=== PATIENT | female | born 2000 | race African-American/Black ===

== ENCOUNTER 2025-06-11 17:01 | Emergency (ER) | payer BC, MEDICAID ==
[~2025-06-11] VITALS: Ht 162.6 cm; Wt 68.0 kg
[2025-06-11 17:27] VITALS: O2SAT 79
[2025-06-11 19:36] LABS: BASOPHILS % 0.4 % (0.0-2.0); EOSINOPHILS % 0.7 % (0.0-5.0); HEMATOCRIT. 34.3 % (36.0-48.0); HEMOGLOBIN. 10.9 g/dL (12.0-16.0); LYMPHOCYTES % 12.5 % (20.0-50.0); MEAN PLATELET VOLUME 8.8 fl (7.4-10.4); MONOCYTES % 6.6 % (2.0-8.0); NEUTROPHILS % 79.8 % (40.0-76.0); PLATELET 188 x1000/uL (130-400); RED BLOOD CELL COUNT 4.85 mill/uL (4.2-5.4); RED CELL DISTRIBUTION WIDTH 20.2 % (11.6-14.6)
[2025-06-11 19:49] LABS: CREATININE 0.7 mg/dL (0.6-1.0)
[2025-06-11 19:50] LABS: ETHANOL BLOOD < 10 mg/dL (<10); UREA NITROGEN BLOOD 6 mg/dL (9-23)
[2025-06-11 19:51] LABS: ASPARTATE AMINOTRANSFERASE 110 IU/L (<34)
[2025-06-11 19:52] LABS: BILIRUBIN DIRECT 0.2 mg/dL (<=3.0); BILIRUBIN TOTAL 0.7 mg/dL (0.1-1.0); PROTEIN TOTAL 7.9 g/dL (6.0-8.3)
[2025-06-11 19:59] LABS: HCG SCREEN NEGATIVE
[2025-06-11] MEDS ORDERED: NALT50TA5 MT (20:21)
[2025-06-11] MEDS ORDERED: ONDA4TAB50 MT (20:21)
[2025-06-11] MEDS ORDERED: CHLO25CA11 MT (20:21)
[2025-06-11] MEDS: SODIUM CHLORIDE 0.9% 1,000 ML IV ONE (21:05)
[2025-06-11] MEDS: ONDANSETRON HCL 4MG/2ML INJ IV SCH (21:06)
[2025-06-11] MEDS: LORAZEPAM 2MG/ML UD SYRINGE IV SCH (21:06)
[2025-06-11 21:26] LABS: TROPONIN I HIGH SENSITIVITY < 4 ng/L (3.0-34)
[2025-06-11 22:17] VITALS: BP 120/64; PULSE 96; RESP 14; TEMP 37.1; O2SAT 100
== END 2025-06-11 22:37 | disposition home or self-care (01) ==
LOC: ER 17:01
DX: F10.20 Alcohol dependence, uncomplicated (principal); J45.909 Unspecified asthma, uncomplicated; Z79.899 Other long term (current) drug therapy; Y90.9 Presence of alcohol in blood, level not specified
CPT/HCPCS: 80076; 80048; 80320; 84703; 83880; 83690; 85025; 84484; 36415; 71045; 93005; 96361; 96374; 96375; 99285; J2060; J2405; Z7610; A4606; G0480